=== PATIENT | male | born 1965 | race Caucasian/White ===

== ENCOUNTER 2019-01-16 01:58 | Emergency (ER) | payer MEDICAID ==
[~2019-01-16] VITALS: Ht 203.2 cm; Wt 80.0 kg
[2019-01-16] MEDS ORDERED: ATENOLOL (02:12)
[2019-01-16] MEDS ORDERED: LORAZEPAM (02:12)
[2019-01-16] MEDS ORDERED: ONDANSETRON 2MG/ML, 2ML ONE (02:29)
[2019-01-16] MEDS ORDERED: HYDROmorphone 1 MG/ML, 1ML VIAL ONE ×2 (02:29→04:48)
[2019-01-16] MEDS ORDERED: HYDROmorphone 1 MG/ML, 1ML INJ IV ONE ×2 (02:30→05:00)
[2019-01-16] MEDS ORDERED: ONDANSETRON 2MG/ML, 2ML IVPush ONE (02:30)
[2019-01-16] MEDS ORDERED: SODIUM CHLORIDE FLUSH 10ML SYR IVF ONE (02:30)
--- NOTE | 2019-01-16 02:37 | NUR ---
IV STARTED. PT MEDICATED PER EMAR FOR PAIN. PT YELLING AT LAB DURING NEEDLE STICK, ABOUT NEEDLE STICK HURTING. PT UPSET AT THIS RN, STATED RN IS BEING TOO ROUGH WITH PT HE IS VERY SENSITIVE AT THIS TIME AND WANTS RN TO BE GENTLE. THIS RN HAS EXPLAINED EVERYTHING THAT IS GOING TO OCCUR TO PT BEFORE DOING IT. PT CONTINUING TO YELL AT THIS RN AND STATED, "YA I GET IT, YOU'RE PASSIVE AGRESSIVE". PT STATED HE WILL WALK OUT IF STAFF ISN'T MORE GENTLE WITH PT. CHARGE AWARE OF PT STATEMENTS.
[2019-01-16 02:45] LABS: BASOPHILS # (AUTO) 0.06 x10^3/uL (0-0.1); BASOPHILS % (AUTO) 0 % (0-1); EOSINOPHILS # (AUTO) 0.18 x10^3/uL (0-0.4); EOSINOPHILS % (AUTO) 1 % (1-7); LYMPHOCYTES # (AUTO) 1.29 x10^3/uL (1-3.4); LYMPHOCYTES % (AUTO) 9 % (22-44); MD NO; MEAN CORPUSCULAR HEMOGLOBIN 32.2 pg (27.5-34.5); MEAN CORPUSCULAR HGB CONC 34.2 g/dL (33.2-36.2); MEAN CORPUSCULAR VOLUME 94.3 fL (81-97); MONOCYTES # (AUTO) 1.34 x10^3/uL (0.2-0.8); MONOCYTES % (AUTO) 9 % (2-9); NEUTROPHILS % (AUTO) 81 % (42-75); PLATELET COUNT 296 x10^3/uL (130-400); RED BLOOD COUNT 4.55 x10^6/uL (4.38-5.82)
[2019-01-16 02:55] LABS: ALANINE AMINOTRANSFERASE 33 U/L (12-78); ALBUMIN 3.8 g/dL (3.4-5.0); ANION GAP 2 mmol/L (5-15); CALCIUM 8.7 mg/dL (8.5-10.1); CHLORIDE 107 mmol/L (98-107); CREATININE 1.03 mg/dL (0.7-1.3)
[2019-01-16 02:59] LABS: ALKALINE PHOSPHATASE 80 U/L (45-117); BILIRUBIN,TOTAL 0.5 mg/dL (0.2-1.0); TOTAL PROTEIN 7.7 g/dL (6.4-8.2); TROPONIN I < 0.015 ng/mL (0.000-0.045)
[2019-01-16 03:02] LABS: D-DIMER 0.36 ug/mlFEU (0.00-0.52); INTERNATIONAL NORMALIZED RATIO 0.93 (0.93-1.1); PROTHROMBIN TIME 9.8 Seconds (9.6-11.5)
--- NOTE | 2019-01-16 03:32 | NUR ---
RECEIVED REPORT FROM SUNSHINE SPEARS TO ASSUME CARE OF PT. AT THIS TIME.
--- NOTE | 2019-01-16 03:54 | NUR ---
PT. PROVIDED WITH WARM BLANKETS AND BED ADJUSTED FOR PT. COMFORT. PT. AWAITING CT SCAN.
--- NOTE | 2019-01-16 04:29 | NUR ---
PT. BACK FROM CT. C/O INCREASING PAIN TO UPPER BACK BETWEEN SHOULDER BLADES. WILL DISCUSS WITH ERP WHEN ABLE.
[2019-01-16] MEDS ORDERED: OMNIPAQUE 350 MG/ML, 100ML BOTTLE ONE (04:31)
--- NOTE | 2019-01-16 04:45 | NUR ---
[facility] CALLED TO ASK FOR HISTORY AND SYMPTOMS OF PT. REPORT GIVEN TO [facility]. AWAITING RAD READ.
--- NOTE | 2019-01-16 04:53 | NUR ---
DISCUSSED PT. PAIN WITH DR. SUGGS; NEW ORDER RECEIVED. PT. MEDICATED PER NOV.
--- NOTE | 2019-01-16 05:11 | NUR ---
CHART UP FOR RECHECK BY ALVA.
[2019-01-16] MEDS ORDERED: KETOROLAC 30 MG/1 ML ONE (05:20)
[2019-01-16] MEDS ORDERED: KETOROLAC 30 MG/1 ML IVPush ONE (05:30)
[2019-01-16] MEDS ORDERED: methylPREDNISolone SOD SUCC 125 MG/2 ML ONE (05:38)
[2019-01-16 05:45] VITALS: BP 137/67
--- NOTE | 2019-01-16 05:46 | NUR ---
DR. SUGGS IN TO DISCUSS PLAN FOR D/C WITH PT.
[2019-01-16] MEDS ORDERED: methylPREDNISolone SOD SUCC 125 MG/2 ML IVPush ONE (06:00)
== END 2019-01-16 05:58 | disposition home or self-care (01) ==
LOC: ED 05:30
DX: M54.6 Pain in thoracic spine (principal); I10 Essential (primary) hypertension
CPT/HCPCS: 36415; 72129; 80053; 83605; 83690; 84484; 85025; 85379; 85610; 85730; 96374; 96375; 96376; 99284; J1170; J1885; J2405; J2930; Q9967